=== PATIENT | male | born 1970 | race Two or more races ===

== ENCOUNTER 2021-07-28 00:07 | Emergency (ER) | payer OTHER ==
[~2021-07-28] VITALS: Ht 177.8 cm; Wt 120.5 kg
--- NOTE | 2021-07-28 02:18 | RAD ---
CT thoracic spine without contrast PQRS statement: CT scans at this facility use dose reduction including either automated exposure cont rol, iterative reconstructions, and /or weight based radiation dosing via mA and kV modification when appropriate to reduce radiation dose to as low as reasonably achievable. HISTORY: Back pain after fall. FINDINGS: Thoracic vertebral body height and alignment intact. 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 No fracture of the thoracic spine. No spondylolysis defect. No bone lesion. Small chronic ossicle at the tip of the T1 spinous process. Mild anterior thoracic o steophytes of the lower thoracic spine. There is mild facet spurring of the lower thoracic spine. The re appear to be gastroesophageal varices. Coronary calcified plaque. IMPRESSION: No acute osseous injury of the thoracic spine. See above. Electronically signed by: Ford Davidson MD (07/28/2021 2:15 AM) [facility]
--- NOTE | 2021-07-28 02:29 | RAD ---
CT lumbar spine without contrast PQRS statement: CT scans at this facility use dose reduction including either automated exposure cont rol, iterative reconstructions, and /or weight based radiation dosing via mA and kV modification when appropriate to reduce radiation dose to as low as reasonably achievable. HISTORY: Back pain. FINDINGS: Bilateral chronic L5 spondylolysis defects. Grade 1 anterolisthesis of 4 mm of L5 on S1. No fracture. Lumbar vertebral body height and alignment intact. Paraspinal tissues are unremarkable. Th ere are probable shallow disc bulges and facet spurring at several levels of the lumbar spine. At L5- S1 there is severe bilateral neural foraminal stenosis associated with the L5 anterolisthesis, latera l disc osteophytes and hypertrophic ossification about the L5 spondylolysis defects. IMPRESSION: No acute osseous injury the lumbar spine. Bilateral L5 spondylolysis defects. See above. Electronically signed by: Ford Davidson MD (07/28/2021 2:26 AM) [facility]
[2021-07-28] MEDS ORDERED: HYDR-2759 PO (02:34)
--- NOTE | 2021-07-28 02:35 | PHYS DOC ---
Past Medical History Additional Past Medical Histor: PINCHED NERVE, HERNIATED DISC, ESOPHAGEAL VARICES, CIRRHOSIS, SLEEP APNEA, Past Surgical History: Cholecystectomy Smoking Status: Former Smoker Alcohol Use: Sober General Adult EDM: Chief Complaint: MECHANICAL FALL HPI: HPI: Patient is a 51 year old male presents with bilateral shoulder and midline thoracic discomfort. This afternoon patient was using his walker when he fell forward and family member fell on top of him. Patient has had bilateral shoulder pain and Midline thoracic pain since fall. Patient denies any head injury he has no deformities of his extremities. Patient has tenderness to palpation bilateral shoulders and tenderness to palpation at the level of approximately T10 with no step-off or deformities. Review of Systems: Review of Systems: Review of systems: Constitutional symptoms- No fever, no chills. Eyes- No Discharge, No Visual Loss Respiratory symptoms- No shortness of breath, No wheezing, No Dyspnea on Exertion Cardiovascular Systems; No chest pain, No Palpitations, No syncope Gastrointestinal symptoms: NO abdominal pain, no nausea, no vomiting or diarrhea. Genitourinary symptoms: No dysuria. Musculoskeletal symptoms: Positive back pain No extremity pain. NEUROLOGICAL Symptoms: No headache, no generalized weakness; No focal Weakness Skin: No rash. Heart Score: C/O Chest Pain: N/A Risk Factors: Risk Factors: DM, Current or recent (<one month) smoker, HTN, HLP, family history of CAD, obesity. Risk Scores: Score 0 - 3: 2.5% MACE over next 6 weeks - Discharge Home Score 4 - 6: 20.3% MACE over next 6 weeks - Admit for Clinical Observation Score 7 - 10: 72.7% MACE over next 6 weeks - Early Invasive Strategies Allergies: Allergies: Allergies Coded Allergies Type Severity Reaction Last Updated Verified prednisone Allergy Intermediate 07/28/21 Yes Physical Exam: PE: General: alert, no acute distress. Skin: warm, dry and intact, no erythema, no rash. HENT: bilateral external ears normal, oropharynx moist, nose normal. Head:: Normocephalic, atraumatic. Neck: Trachea midline. Eyes: EOMI, Normal conjunctiva, No drainage CARDIOVASCULAR: Regular rate and rhythm RESPIRATORY: No respiratory distress Back: Full range of motion. Tenderness to palpation at the level of T10. No C-spine T-spine or L-spine step-off or deformities. MUSCULOSKELETAL: Full range of motion of bilateral upper and lower extremities. GASTROINTESTINAL: Abdomen soft without rebound or guarding. NEUROLOGICAL: Alert and noted to person, place and time. No neurological deficits observed Psychiatric: Cooperative. Normal judgment Current Patient Data: Vital Signs: Vital Signs Date Time Temp Pulse Resp B/P (MAP) Pulse Ox O2 Delivery O2 Flow Rate FiO2 07/28/21 01:45 98.2 59 20 121/68 (85) 99 Room Air 98.2 EKG: EKG: [] Radiology/Procedures: Radiology/Procedures: [] Course & Med Decision Making: Course & Med Decision Making Pertinent Labs and Imaging studies reviewed. (See chart for details) [] No acute fractures or dislocations of T or L-spine. Dragon Disclaimer: [email or web address] Disclaimer: This electronic medical record was generated, in whole or in part, using a voice recognition dictation system. Departure Departure Impression: Primary Impression: Back pain Additional Impression: Fall Disposition: HOME / SELF CARE / HOMELESS Condition: STABLE Referrals: UNKNOWN PCP NAME (PCP) Patient Instructions: Back Pain, Adult Scripts Hydrocodone/Acetaminophen (Hydrocodone-Acetamin 5-325 mg) 1 Each Tablet 1 EACH PO Q4-6HRS, #14 TAB Prov: KUSH RAUSCH DO 07/28/21 KUSH RAUSCH DO Jul 28, 2021 02:35
[2021-07-28 03:05] VITALS: BP 117/66
[2021-07-28] MEDS ORDERED: HYDROcodone/APAP 5/325MG 1 TAB TABLET PO ONE (03:30)
== END 2021-07-28 03:29 | disposition home or self-care (01) ==
LOC: ER 00:07
DX: M54.6 Pain in thoracic spine (principal); M25.511 Pain in right shoulder; M25.512 Pain in left shoulder; M54.50 Low back pain, unspecified; M43.06 Spondylolysis, lumbar region; G89.11 Acute pain due to trauma; Z87.891 Personal history of nicotine dependence; Z90.49 Acquired absence of other specified parts of digestive tract; W18.39XA Other fall on same level, initial encounter; Y93.89 Activity, other specified; Y92.89 Other specified places as the place of occurrence of the external cause; Y99.8 Other external cause status
CPT/HCPCS: 72128; 72131; 99284-25